=== PATIENT | male | born 1950 | race Caucasian/White ===

== ENCOUNTER → 2022-07-11 | Day surgery (SDC) | payer MEDICARE ==
[~2022-07-11] VITALS: Ht 182.9 cm; Wt 121.6 kg
[2022-07-11] VITALS (8 sets, daily range): BP systolic 118–130; BP diastolic 78–96; PULSE 63–98; TEMP 97.1–97.5
[~2022-07-11] MED LIST: ALPHA LIPOIC A600 M1 PO; ASPIRIN 81M81 MG/TA2 PO; AZILECT1 MG PO; CALCIUM 600600 MG PO; CEPHALEXIN500 M1 PO; CIPRO 500MG TA500 MG PO; COLACE 100100 MG/CAP PO; FISH OIL 1000MG1 CAP PO; MASON NATURAL2000 IU PO; MULTI VITAMINS1 TAB PO; NEURONTIN300 MG/CAP PO; ORGOVYX120 MG PO; OSTEO-BI-FLEX 21 TAB PO; PERCOCET 325 MG1 TA2 PO; PHARMASSURE GA500 MG PO; PRILOSEC 20MG20 MG PO; SINEMET 25/101 UDTAB PO; VESICARE 5MG5 MG PO; VITAMIN B COMPL1 SGL PO; VITAMIN C500 MG PO; VITAMIN D31000 IU PO; ZESTRIL 10MG10 MG PO; ZOCOR 20MG20 MG PO; ZYRTEC 10MG10 MG PO
--- NOTE | 2022-07-11 12:05 | NUR ---
1105-PT TO BAY 5 PER CART FROM PACU. REPORT RECEIVED. VS OBTAINED. CALL LIGTH WITHIN REACH. PT DENIES ANY NEEDS AT THIS TIME. WILL CONTINUE TO MONITOR. 1120-PT TOLERATING JUICE AND MUFFIN. DENIES ANY PAIN OR DISCOMFORT AT THIS TIME. WILL CONTINUE TO MONITOR. 1135-PT CONTINUES TO DENY ANY NEEDS. 1150-PT RESTING COMFORTABLY.
--- NOTE | 2022-07-11 12:15 | NUR ---
REPORT RECEIVED FROM Jean Carlos MORRIS RN. ASSUMED CARE AT THIS TIME
--- NOTE | 2022-07-11 12:20 | NUR ---
CLEAR RED FLUID DRAINING FROM BAXTER; NO CLOTS NOTED. PT DENIES ANY PAIN AT THIS TIME.
--- NOTE | 2022-07-11 12:20 | NUR ---
DISCHARGE INSTRUCTIONS GIVEN TO PT AND SPOUSE; QUESTIONS ANSWERED; UNDERSTANDING VERBALIZED.
== END ==
LOC: SDCO 07:30
DX: N32.0 Bladder-neck obstruction (principal); K21.9 Gastro-esophageal reflux disease without esophagitis; Z85.46 Personal history of malignant neoplasm of prostate
CPT/HCPCS: C1769; J2704; J3301